=== PATIENT | male | born 1960 | race Caucasian/White ===

== ENCOUNTER 2020-01-19 16:10 | Inpatient (IN) ==
[2020-01-19] MEDS ORDERED: SODIUM CHLORIDE 0.9% 1,000 ML IV STA (16:34)
[2020-01-19] MEDS ORDERED: PANTOPRAZOLE 40 MG VIAL IV STA (16:34)
[2020-01-19] MEDS ORDERED: THIAMINE 200 MG/2 ML VIAL IV STA (16:37)
[2020-01-19 16:54] LABS: Basophils % 0.5 % (0.0-0.8); Eosinophils % 0.2 % (0.00-10.9); Hematocrit 37.7 VOL% (42.0-52.0); Immature Granulocytes % 0.3 %; Immature Granulocytes Absolute 0.02 #; Lymphocytes # 1.1 10*3/uL (1.4-4.0); Lymphocytes % 19.7 % (21.2-54.2); Mean Corpuscular HGB Conc 34.5 GM/DL (32-36); Mean Corpuscular Volume 95.9 FL (87-102); Mean Platelet Volume 9.3 FL (9.6-12.0); Monocytes % 13.1 % (1.7-12.7); Neutrophils % 66.2 % (38.7-73.9); Platelet Count 143 T/CUMM (130-400); Red Blood Count 3.93 MC/CUMM (3.8-5.5); Red Cell Distribution Width 13.4 % (9.3-17.3); White Blood Count 5.8 T/CUMM (4-12)
[2020-01-19 17:15] LABS: Albumin 3.7 G/DL (3.4-5.0); Bilirubin,Total 1.7 MG/DL (0.2-1.0); Calcium 8.6 MG/DL (8.5-10.1); Osmolality,Calculated 265.5 MOS/KG (273-304); Total Protein 6.8 G/DL (6.4-8.3)
[2020-01-19] MEDS ORDERED: LORazepam 2 MG/1 ML VIAL IV STA (17:18)
[2020-01-19] MEDS ORDERED: DEXTROSE 50% 25 GM/50 ML VIAL IV PRN (17:46)
[2020-01-19] MEDS ORDERED: GLUCAGON 1 MG VIAL IM PRN (17:46)
[2020-01-19 17:49] LABS: PT Patient Result 10.4 SECS (9.8-11.9)
[2020-01-19] MEDS ORDERED: OCTREOTIDE 100 MCG/ML SYRINGE IV ONE ×2 (17:51→23:30)
[2020-01-19] MEDS ORDERED: ONDANSETRON 4 MG/2 ML VIAL IV PRN (17:51)
[2020-01-19 18:28] LABS: Folate 12.4 NG/ML (5.4-24.0)
[2020-01-19 21:17] LABS: Hematocrit 34.8 VOL% (42.0-52.0); Hemoglobin 12.2 GM/DL (14.0-18.0)
[2020-01-19] MEDS: PANTOPRAZOLE 40 MG VIAL IV SCH (21:20)
[2020-01-19] MEDS: chlordiazePOXIDE 25 MG CAPSULE PO SCH (21:22)
[2020-01-19] MEDS: SODIUM CHLORIDE 0.9% 1,000 ML IV SCH (21:22)
[2020-01-19] MEDS: LORazepam 2 MG/1 ML VIAL IV PRN (21:22)
[2020-01-19] MEDS: POTASSIUM CHLORIDE 20 MEQ TABLET PO PRN (21:55)
[2020-01-19] MEDS: OCTREOTIDE 500 MCG in SODIUM CHLORIDE 0.9% 100 ML IV SCH (22:35)
[2020-01-20] MEDS: LORazepam 2 MG/1 ML VIAL IV PRN ×7 (00:35→21:04)
[2020-01-20 00:49] LABS: Hematocrit 32.6 VOL% (42.0-52.0); Hemoglobin 11.3 GM/DL (14.0-18.0)
[2020-01-20] MEDS: OCTREOTIDE 500 MCG in SODIUM CHLORIDE 0.9% 100 ML IV SCH ×3 (01:05→20:00)
[2020-01-20] MEDS ORDERED: POTASSIUM CHLORIDE RIDER 20 MEQ in PREMIX 1 EACH IV PRN (02:08)
[2020-01-20] MEDS: POTASSIUM CHLORIDE RIDER 10 MEQ in PREMIX 1 EACH IV PRN ×4 (03:45→09:55)
[2020-01-20 04:49] LABS: Barbiturates Screen,Urine Negative (Negative); Benzodiazepines Screen,Urine Negative (Negative); Cannabinoid Screen,Urine Negative (Negative); Opiate Screen,Urine Negative (Negative); Phencyclidine Screen,Urine Negative (Negative)
[2020-01-20] MEDS: SODIUM CHLORIDE 0.9% 1,000 ML IV SCH ×3 (05:45→20:00)
[2020-01-20 05:53] LABS: Hematocrit 34.6 VOL% (42.0-52.0); Hemoglobin 11.8 GM/DL (14.0-18.0)
[2020-01-20 05:54] LABS: Basophils % 0.2 % (0.0-0.8); Eosinophils % 0.6 % (0.00-10.9); Hematocrit 34.7 VOL% (42.0-52.0); Hemoglobin 11.9 GM/DL (14.0-18.0); Immature Granulocytes % 0.4 %; Immature Granulocytes Absolute 0.02 #; Lymphocytes # 1.1 10*3/uL (1.4-4.0); Lymphocytes % 22.7 % (21.2-54.2); Mean Corpuscular HGB Conc 34.3 GM/DL (32-36); Mean Platelet Volume 9.9 FL (9.6-12.0); Neutrophils % 58.1 % (38.7-73.9); Platelet Count 125 T/CUMM (130-400); Red Blood Count 3.54 MC/CUMM (3.8-5.5); Red Cell Distribution Width 13.2 % (9.3-17.3); White Blood Count 4.7 T/CUMM (4-12)
[2020-01-20 06:13] LABS: Albumin 3.2 G/DL (3.4-5.0); Bilirubin,Total 1.5 MG/DL (0.2-1.0); Calcium 8.1 MG/DL (8.5-10.1); Osmolality,Calculated 267.4 MOS/KG (273-304); Total Protein 6.3 G/DL (6.4-8.3)
[2020-01-20 07:08] LABS: Lymphocytes 11 % (20-55); Polychromasia Slight; Segmented Neutrophils 76 % (50-85); Stomatocytes Few; Total Cells Counted 100
[2020-01-20 07:09] LABS: Platelet Estimate Adequate
[2020-01-20 07:10] LABS: Ovalocytes Few
[2020-01-20] MEDS: ESCITALOPRAM 10 MG TABLET PO SCH (09:54)
[2020-01-20] MEDS: chlordiazePOXIDE 25 MG CAPSULE PO SCH ×3 (09:54→20:00)
[2020-01-20] MEDS: THIAMINE 200 MG/2 ML VIAL IV SCH (09:54)
[2020-01-20] MEDS: FOLIC ACID 1 MG TABLET PO SCH (09:54)
[2020-01-20] MEDS: MULTIVITAMIN (CENTRUM) TABLET PO SCH (09:54)
[2020-01-20] MEDS: atenoloL 25 MG TABLET PO SCH (09:54)
[2020-01-20] MEDS: PANTOPRAZOLE 40 MG VIAL IV SCH ×2 (09:55→20:00)
[2020-01-20 12:11] LABS: Hematocrit 35.8 VOL% (42.0-52.0); Hemoglobin 12.3 GM/DL (14.0-18.0)
[2020-01-20 16:45] LABS: Hepatitis B Core IgM Quant 0.22 Index; Hepatitis B Surface Ag Quant < 0.10 Index; Hepatitis B Surface Ag Result Negative (Negative); Hepatitis C Virus Ab Quant 0.09 Index; Hepatitis C Virus Ab Result Negative (Negative)
[2020-01-20] MEDS ORDERED: LORazepam 2 MG/1 ML VIAL IV PRN (21:40)
[2020-01-20] MEDS ORDERED: LORazepam 2 MG/1 ML VIAL IV STA (22:09)
[2020-01-21] MEDS: chlordiazePOXIDE 25 MG CAPSULE PO SCH ×4 (01:05→18:17)
[2020-01-21] MEDS: LORazepam 2 MG/1 ML VIAL IV PRN ×5 (01:05→20:42)
[2020-01-21] MEDS: SODIUM CHLORIDE 0.9% 1,000 ML IV SCH ×3 (03:30→22:35)
[2020-01-21] MEDS: OCTREOTIDE 500 MCG in SODIUM CHLORIDE 0.9% 100 ML IV SCH (05:25)
[2020-01-21 06:13] LABS: Basophils % 0.2 % (0.0-0.8); Hematocrit 35.9 VOL% (42.0-52.0); Hemoglobin 12.4 GM/DL (14.0-18.0); Immature Granulocytes % 0.5 %; Immature Granulocytes Absolute 0.02 #; Mean Corpuscular HGB Conc 34.5 GM/DL (32-36); Mean Platelet Volume 10.4 FL (9.6-12.0); Monocytes % 15.9 % (1.7-12.7); Neutrophils % 58.4 % (38.7-73.9); Platelet Count 131 T/CUMM (130-400); White Blood Count 4.2 T/CUMM (4-12)
[2020-01-21 06:33] LABS: Albumin 3.5 G/DL (3.4-5.0); Bilirubin,Total 1.7 MG/DL (0.2-1.0); Calcium 8.2 MG/DL (8.5-10.1); Osmolality,Calculated 260.7 MOS/KG (273-304); Total Protein 6.6 G/DL (6.4-8.3)
[2020-01-21 06:52] LABS: Band Neutrophils 4 % (0-10); Eosinophils 1 % (0-10); Lymphocytes 27 % (20-55); Segmented Neutrophils 50 % (50-85); Total Cells Counted 100
[2020-01-21 06:53] LABS: Anisocytosis 1+; Platelet Estimate Adequate
[2020-01-21] MEDS: PANTOPRAZOLE 40 MG VIAL IV SCH ×2 (08:00→20:40)
[2020-01-21] MEDS: atenoloL 25 MG TABLET PO SCH (08:01)
[2020-01-21] MEDS: THIAMINE 200 MG/2 ML VIAL IV SCH (08:01)
[2020-01-21] MEDS: ESCITALOPRAM 10 MG TABLET PO SCH (08:01)
[2020-01-21] MEDS: FOLIC ACID 1 MG TABLET PO SCH (08:01)
[2020-01-21] MEDS: MULTIVITAMIN (CENTRUM) TABLET PO SCH (08:02)
[2020-01-21] MEDS: POTASSIUM CHLORIDE 20 MEQ TABLET PO PRN ×2 (13:35→16:05)
[2020-01-21] MEDS: POTASSIUM CHLORIDE RIDER 10 MEQ in PREMIX 1 EACH IV PRN (22:35)
[2020-01-22] MEDS: LORazepam 2 MG/1 ML VIAL IV PRN ×4 (00:35→12:56)
[2020-01-22] MEDS: POTASSIUM CHLORIDE RIDER 10 MEQ in PREMIX 1 EACH IV PRN ×3 (00:35→02:55)
[2020-01-22] MEDS: chlordiazePOXIDE 25 MG CAPSULE PO SCH (00:35)
[2020-01-22 06:31] LABS: Basophils % 0.4 % (0.0-0.8); Eosinophils # 0.1 10*3/uL (0.0-0.87); Eosinophils % 2.2 % (0.00-10.9); Hematocrit 37.9 VOL% (42.0-52.0); Hemoglobin 12.7 GM/DL (14.0-18.0); Immature Granulocytes % 0.4 %; Immature Granulocytes Absolute 0.02 #; Lymphocytes # 1.4 10*3/uL (1.4-4.0); Lymphocytes % 27.7 % (21.2-54.2); Mean Corpuscular HGB Conc 33.5 GM/DL (32-36); Mean Platelet Volume 10.1 FL (9.6-12.0); Monocytes % 15.5 % (1.7-12.7); Neutrophils % 53.8 % (38.7-73.9); Platelet Count 144 T/CUMM (130-400); Red Blood Count 3.79 MC/CUMM (3.8-5.5); Red Cell Distribution Width 13.2 % (9.3-17.3)
[2020-01-22 06:51] LABS: Albumin 3.7 G/DL (3.4-5.0); Bilirubin,Total 1.1 MG/DL (0.2-1.0); Calcium 8.4 MG/DL (8.5-10.1); Osmolality,Calculated 267.1 MOS/KG (273-304); Total Protein 6.9 G/DL (6.4-8.3)
[2020-01-22] MEDS: SODIUM CHLORIDE 0.9% 1,000 ML IV SCH (07:33)
[2020-01-22] MEDS: PANTOPRAZOLE 40 MG VIAL IV SCH (08:15)
[2020-01-22] MEDS: THIAMINE 200 MG/2 ML VIAL IV SCH (08:15)
[2020-01-22] MEDS ORDERED: propofoL 200 MG/20 ML VIAL IV ONE (09:00)
[2020-01-22] MEDS ORDERED: LIDOCAINE 2% 5 ML VIAL ONE (09:00)
[2020-01-22 13:01] VITALS: BP 151/91
== END 2020-01-22 16:15 | disposition home or self-care (01) | DRG 392 ==
LOC: N.ED 16:10 → SUATTDRO 17:35 → N.EDINP 17:35 → N.3E 20:31
PROVIDERS: ADMIT Internal Medicine Critical Care Medicine; ATTEND Internal Medicine